=== PATIENT | female | born 1980 ===

== ENCOUNTER 2016-08-20 22:33 | Emergency (ER) | payer MEDICAID ==
[2016-08-20] MEDS ORDERED: Sodium Chloride 0.9% 1,000 ML IV ONE (23:50)
--- NOTE | 2016-08-20 23:51 | C.PDOC ---
History Of Present Illness Patient presents after drinking 4 shots of joel after not eating all day as per sister. Patient's sister states her son last night and has been drinking because she is depressed. Patient has not verbalized any physical complaints at this time. Time Seen by Provider: 08/20/16 23:50 Chief Complaint (Nursing): Substance Abuse History Per: Patient History/Exam Limitations: no limitations Onset/Duration Of Symptoms: Hrs Current Symptoms Are (Timing): Still Present Suicide/Self Injury Attempted (Context): None Modifying Factor(s): Alcohol Severity: None Pain Scale Rating Of: 0 Associated Symptoms: Depression. denies: Suicidal Thoughts, Suicidal Plan Involuntary Hold By: None Recent travel outside of the [place]: No Past Medical History Reviewed: Historical Data, Nursing Documentation, Vital Signs Vital Signs: Last Vital Signs Temp 98.7 F 08/20/16 22:41 Pulse 95 H 08/20/16 22:41 Resp 18 08/20/16 22:41 BP 136/77 08/20/16 22:41 Pulse Ox 97 08/21/16 01:26 - Medical History PMH: No Chronic Diseases Surgical History: No Surg Hx Family History: States: No Known Family Hx - Social History Hx Alcohol Use: Yes (A few times per week (as per triage)) Hx Substance Use: No - Immunization History Hx Tetanus Toxoid Vaccination: No Hx Influenza Vaccination: No Hx Pneumococcal Vaccination: No Review Of Systems Constitutional: Negative for: Fever, Chills Gastrointestinal: Negative for: Nausea, Vomiting, Diarrhea Psych: Positive for: Depression Physical Exam - Physical Exam Appears: Non-toxic, Other (ETOH on breath) Skin: Warm, Dry Oral Mucosa: Moist Cardiovascular: Rhythm Regular, No Murmur Respiratory: No Rales, No Rhonchi, No Wheezing Gastrointestinal/Abdominal: Soft, No Tenderness ED Course And Treatment - Laboratory Results Result Diagrams: 08/21/16 00:27 08/21/16 00:27 O2 Sat by Pulse Oximetry: 97 (Room air) Pulse Ox Interpretation: Normal Progress Note: Blood work and urinalysis ordered. IV fluids administered. pt was cleared for discharge by dr ford Disposition Counseled Patient/Family Regarding: Studies Performed, Diagnosis, Need For Followup - Disposition Disposition: HOME/ ROUTINE Disposition Time: 23:50 Condition: FAIR Instructions: Grief and Loss (ED) Print Language: BRAZILIAN - Clinical Impression Clinical Impression: Bereavement, uncomplicated - Scribe Statement The provider has reviewed the documentation as recorded by the Scribe Wu Vanessa All medical record entries made by the Scribe were at my direction and personally dictated by me. I have reviewed the chart and agree that the record accurately reflects my personal performance of the history, physical exam, medical decision making, and the department course for this patient. I have also personally directed, reviewed, and agree with the discharge instructions and disposition.
[2016-08-21] MEDS ORDERED: Sodium Chloride 0.9% 1,000 ML ONE (00:02)
[2016-08-21 00:37] LABS: BASO # 0.1 K/uL (0.0-0.2); BASO % 0.6 % (0.0-2.0); EOS % 0.2 % (0.0-4.0); LYMPH # 2.1 K/uL (1.0-4.3); LYMPH % 18.2 % (20.0-40.0); MEAN CELL VOLUME 72.9 fL (81.0-99.0); MEAN CORPUSCULAR HEMOGLOBIN 22.4 pg (27.0-31.0); MEAN CORPUSCULAR HGB CONC 30.7 g/dL (33.0-37.0); MEAN PLATELET VOLUME 7.4 fL (7.2-11.7); MONO # 0.9 K/uL (0.0-0.8); MONO % 7.8 % (0.0-10.0); RED CELL DISTRIBUTION WIDTH 17.4 % (11.5-14.5); WHITE BLOOD COUNT 11.7 K/uL (4.8-10.8)
[2016-08-21 00:47] LABS: CHLORIDE 100 mmol/L (98-107); POTASSIUM 3.9 mmol/L (3.6-5.2); SODIUM 137 mmol/L (132-148)
[2016-08-21 00:49] LABS: AST/SGOT 30 U/L (14-36); BILIRUBIN,TOTAL 0.4 mg/dL (0.2-1.3); CARBON DIOXIDE 21 mmol/L (22-30); GFR AFRICAN-AMERICAN > 60
[2016-08-21 00:50] LABS: ALB/GLOB RATIO 0.9 (1.0-2.1); ALKALINE PHOSPHATASE 88 U/L (38-126); ALT/SGPT 44 U/L (9-52); BLOOD UREA NITROGEN 10 mg/dL (7-17); CALCIUM 8.4 mg/dl (8.6-10.4); GLUCOSE,RANDOM 113 mg/dL (65-105); TOTAL PROTEIN 8.1 g/dL (6.3-8.3)
[2016-08-21 00:51] LABS: ALCOHOL SERUM 155 mg/dl (0-10)
[2016-08-21 01:31] LABS: RBC URINE 9 /hpf (0-3); URINE BACTERIA RARE (<OCC); URINE BILIRUBIN NEGATIVE (NEGATIVE); URINE BLOOD 3+ (NEGATIVE); URINE COLOR Yellow (YELLOW); URINE GLUCOSE (UA) NORMAL (Normal); URINE KETONE TRACE mg/dL (NEGATIVE); URINE LEUKOCYTE ESTERASE NEG Leu/uL (Negative); URINE PROTEIN NEGATIVE (NEGATIVE); URINE UROBILINOGEN NORMAL mg/dL (0.2-1.0); WBC URINE 1 /hpf (0-5)
[2016-08-21 02:57] VITALS: BP 122/70; PULSE 89; RESP 20; TEMP 97.2; O2SAT 98
== END 2016-08-21 02:58 | disposition home or self-care (01) ==
LOC: C.ER 22:33
DX: Z63.4 Disappearance and death of family member (principal)
CPT/HCPCS: 80053; 80320; 80324; 80329; 80345; 80346; 80349; 80353; 80358; 80361; 81001; 83992; 84703; 85025; 96360; 99285; J7040

== ENCOUNTER 2018-04-01 19:58 | Emergency (ER) | payer MEDICAID ==
[2018-04-01 20:19] VITALS: RESP 20; O2SAT 100
[2018-04-01] MEDS ORDERED: Sodium Chloride 0.9% 1,000 ML IV ONE (20:29)
[2018-04-01] MEDS ORDERED: Sodium Chloride 0.9% 1,000 ML ONE (20:45)
[2018-04-01 20:48] LABS: BASO # 0.1 K/uL (0.0-0.2); EOS # 0.1 K/uL (0.0-0.7); HEMOGLOBIN 8.2 g/dL (11.0-16.0); MEAN CELL VOLUME 64.9 fL (81.0-99.0); WHITE BLOOD COUNT 9.9 K/uL (4.8-10.8)
[2018-04-01 20:55] LABS: URINE BACTERIA FEW (<OCC); URINE BILIRUBIN NEGATIVE (NEGATIVE); URINE BLOOD 3+ (NEGATIVE); URINE CLARITY Hazy (Clear); URINE COLOR Amber (YELLOW); URINE GLUCOSE (UA) NORMAL (Normal); URINE LEUKOCYTE ESTERASE 2+ Leu/uL (Negative); URINE PROTEIN 2+ mg/dL (NEGATIVE)
[2018-04-01 20:56] LABS: BASO % 1.3 % (0.0-2.0); EOS % 0.9 % (0.0-4.0); LYMPH # 2.8 K/uL (1.0-4.3); LYMPH % 28.5 % (20.0-40.0); MEAN CORPUSCULAR HEMOGLOBIN 19.3 pg (27.0-31.0); MEAN CORPUSCULAR HGB CONC 29.8 g/dL (33.0-37.0); MEAN PLATELET VOLUME 7.1 fL (7.2-11.7); MONO # 0.8 K/uL (0.0-0.8); MONO % 8.3 % (0.0-10.0); NRBC % 0.1 % (0.0-2.0); RBC 4.24 Mil/uL (3.80-5.20); RED CELL DISTRIBUTION WIDTH 18.1 % (11.5-14.5)
[2018-04-01 21:00] LABS: ALB/GLOB RATIO 0.9 (1.0-2.1); ALBUMIN 3.6 g/dL (3.5-5.0); ALT/SGPT 21 U/L (9-52); AST/SGOT 15 U/L (14-36); BLOOD UREA NITROGEN 11 mg/dL (7-17); CALCIUM 7.8 mg/dl (8.6-10.4); GFR NON-AFRICAN AMERICAN > 60; LIPASE 37 U/L (23-300)
--- NOTE | 2018-04-01 21:11 | C.PDOC ---
History Of Present Illness Patient is a 38 year old female who presents to the ED c/o waxing and waning diffuse abdominal pain for the past 2 weeks. Patient notes associated constipation and has not taken any medications for her symptoms. She denies any nausea, vomiting, diarrhea, urinary symptoms, vaginal bleeding, or vaginal discharge. Time Seen by Provider: 04/01/18 20:22 Chief Complaint (Nursing): Abdominal Pain History Per: Patient History/Exam Limitations: no limitations Onset/Duration Of Symptoms: Other (2 weeks ) Current Symptoms Are (Timing): Still Present Location Of Pain/Discomfort: Diffuse Quality Of Discomfort: "Pain" Associated Symptoms: Constipation. denies: Nausea, Vomiting, Diarrhea, Urinary Symptoms Additional History Per: Patient Abnormal Vaginal Bleeding: No Past Medical History Reviewed: Historical Data, Nursing Documentation, Vital Signs Vital Signs: Last Vital Signs Temp 99 F 04/01/18 20:15 Pulse 103 H 04/01/18 20:15 Resp 20 04/01/18 20:15 BP 106/68 04/01/18 20:15 Pulse Ox 100 04/01/18 20:15 - Medical History PMH: No Chronic Diseases Denies: Diabetes, Hepatitis, HIV, HTN, Seizures, Sexually Transmitted Disease Surgical History: No Surg Hx Family History: States: Unknown Family Hx - Social History Hx Tobacco Use: No Hx Alcohol Use: Yes (A few times per week (as per triage)) Hx Substance Use: No - Immunization History Hx Tetanus Toxoid Vaccination: No Hx Influenza Vaccination: No Hx Pneumococcal Vaccination: No Review Of Systems Except As Marked, All Systems Reviewed And Found Negative. Gastrointestinal: Positive for: Abdominal Pain, Constipation Physical Exam - Physical Exam Appears: Non-toxic, No Acute Distress Skin: Normal Color, Warm, Dry Head: Atraumatic, Normacephalic Eye(s): bilateral: Normal Inspection, PERRL, EOMI Nose: Normal Oral Mucosa: Moist Chest: Symmetrical Cardiovascular: Rhythm Regular, No Murmur Respiratory: Normal Breath Sounds, No Rales, No Rhonchi, No Wheezing Gastrointestinal/Abdominal: Tenderness (diffuse ), No Guarding, No Rebound Extremity: Normal ROM Neurological/Psych: Oriented x3, Normal Speech ED Course And Treatment - Laboratory Results Result Diagrams: 04/01/18 20:44 04/01/18 20:44 Lab Results: Total Bilirubin 0.2 mg/dL (0.2-1.3) 04/01/18 20:44 AST 15 U/L (14-36) 04/01/18 20:44 ALT 21 U/L (9-52) 04/01/18 20:44 Alkaline Phosphatase 91 U/L (38-126) 04/01/18 20:44 Total Protein 7.4 g/dL (6.3-8.3) 04/01/18 20:44 Albumin 3.6 g/dL (3.5-5.0) 04/01/18 20:44 Globulin 3.8 gm/dL (2.2-3.9) 04/01/18 20:44 Albumin/Globulin Ratio 0.9 (1.0-2.1) L 04/01/18 20:44 Lipase 37 U/L (23-300) 04/01/18 20:44 Urine Color Radha (YELLOW) 04/01/18 20:44 Urine Clarity Hazy (Clear) 04/01/18 20:44 Urine pH 6.0 (5.0-8.0) 04/01/18 20:44 Ur Specific [place] 1.020 (1.003-1.030) 04/01/18 20:44 Urine Protein 2+ mg/dL (NEGATIVE) H 04/01/18 20:44 Urine Glucose (UA) Normal mg/dL (Normal) 04/01/18 20:44 Urine Ketones Negative mg/dL (NEGATIVE) 04/01/18 20:44 Urine Blood 3+ (NEGATIVE) H 04/01/18 20:44 Urine Nitrate Negative (NEGATIVE) 04/01/18 20:44 Urine Bilirubin Negative (NEGATIVE) 04/01/18 20:44 Urine Urobilinogen 4.0 mg/dL (0.2-1.0) H 04/01/18 20:44 Ur Leukocyte Esterase 2+ Pb/uL (Negative) H 04/01/18 20:44 Urine WBC (Auto) 47 /hpf (0-5) H 04/01/18 20:44 Urine RBC (Auto) 4119 /hpf (0-3) H 04/01/18 20:44 Urine Bacteria Few (<OCC) H 04/01/18 20:44 O2 Sat by Pulse Oximetry: 100 (on RA) Pulse Ox Interpretation: Normal - CT Scan/US CAT A/P Other Rad Studies (CT/US): Read By Radiologist, Radiology Report Reviewed CT/US Interpretation: EXAM: CT Abdomen and Pelvis with IV contrast. CLINICAL HISTORY: Sima umbilical pain. TECHNIQUE: Axial computed tomography images of the abdomen and pelvis with intravenous contrast. CONTRAST: With intravenous contrast. COMPARISON: None provided. FINDINGS: LUNG BASES: The lung bases appear clear. No pleural effusions are seen. LIVER: Unremarkable. GALLBLADDER AND BILE DUCTS: The gallbladder appears within normal limits. No radioopaque gallstones are seen. No biliary ductal dilatation is evident. PANCREAS: Unremarkable. SPLEEN: Unremarkable. ADRENAL GLANDS: Unremarkable. KIDNEYS, URETERS, AND BLADDER: The kidneys appear within normal limits. There is no hydronephrosis or hydroureter. No urinary calculi are seen. The urinary bladder is compressed by the enlarged uterus; but otherwise appears normal in size and configuration. STOMACH AND BOWEL: Unremarkable appearance of the stomach and bowel. No evidence of bowel obstruction. No evidence suggesting enteritis or c olitis. APPENDIX: No evidence of acute appendicitis on CT examination. PERITONEUM: No free fluid. No free air. A small umbilical hernia is present which contains fat. LYMPH NODES: No lymphadenopathy is evident. REPRODUCTIVE: The uterus is markedly enlarged, heterogeneous and demonstrates lobulated contours. The uterus measures approximately 14.5 x 12.1 x 12.6 cm in longitudinal, cranial caudal and transverse dimensions respectively. This may be subsequent to a large uterine leiomyomata (fibroids). Uterine neoplasia would be an additional consideration. Gynecologic surgical evaluation could be considered. Both ovaries appeared normal in size and position. VASCULATURE: No evidence of abdominal aortic aneurysm. BONES: No aggressive appearing osseous lesion. No acute osseous pathology evident. IMPRESSION: 1. Markedly enlarged heterogeneous and lobulated uterus suggestive of leiomyomata. Uterine neoplasia would be a secondary consideration. Gynecologic surgical consultation could be considered. 2. A small umbilical hernia is present which contains fat. Medical Decision Making Medical Decision Making: Plan: CAT Abdomen/Pelvis Labs Urinalysis Pepcid 20mg IVP Toradol 30mg IVP Zofran 4mg IVP IV Fluids Assessment: abdominal pain 0001 - patient resting comfortably, speaking on phone, no pain. ct scan report discussed with patient. Discharged home to follow up with gynecology within 2 days. Information provided. Disposition Counseled Patient/Family Regarding: Studies Performed, Diagnosis, Need For Followup, Rx Given - Disposition Referrals: Judy Caal DO [Staff Provider] - [facility] [[facility]] [facility] [Outside] Disposition: HOME/ ROUTINE Disposition Time: 00:02 Condition: STABLE Additional Instructions: follow up with gynecology within 2 days call to make an appointment take medication as prescribed for pain bring cat scan report with you to appointment return to ER if symptoms worsens or progress Prescriptions: Naproxen [Naprosyn] 500 mg PO BID PRN #16 tab PRN Reason: Pain, Moderate (4-7) Instructions: Uterine Fibroids (DC) Forms: Gen Discharge Inst Indonesian, [facility] (Indonesian) Print Language: OCCITAN - Clinical Impression Clinical Impression: Abdominal pain, Fibroid - Scribe Statement The provider has reviewed the documentation as recorded by the Maryibkavon Diggs All medical record entries made by the Maryibkavon were at my direction and personally dictated by me. I have reviewed the chart and agree that the record accurately reflects my personal performance of the history, physical exam, medical decision making, and the department course for this patient. I have also personally directed, reviewed, and agree with the discharge instructions and disposition.
[2018-04-02 00:18] VITALS: BP 112/73; PULSE 77; TEMP 98.5
--- NOTE | 2018-04-02 10:04 | CT ---
CT abdomen and pelvis HISTORY: Abdominal pain. COMPARISON: None available. TECHNIQUE: Multiple contiguous axial images were performed through the abdomen and pelvis with the use of intravenous contrast. Subsequently, sagittal and coronal reformatted images were obtained. This CT exam was performed using one or more of the following dose reduction techniques: Automated exposure control, adjustment of the mA and/or kV according to patient size, and/or use of iterative reconstruction technique. Findings: Mild scattered atelectasis at the lung bases. No pleural or pericardial effusion. Prominent liver with mild fatty infiltration. Gallbladder is preserved. Spleen is preserved. Adrenal glands are preserved. Pancreas is preserved. Upper abdominal bowel is preserved. Right kidney: No calculi or hydronephrosis. Left Kidney: No calculi or hydronephrosis. Urinary bladder is preserved. Markedly enlarged and heterogeneous uterus. Within the uterus, there are prominent lesions including a 8.9 x 8.5 x 8.3 centimeter lesion demonstrating a Hounsfield unit attenuation of 22. An adjacent prominent lesion measures 4.9 x 4.6 x 4.9 centimeters demonstrating a Hounsfield unit attenuation of 58. These may represent prominent fibroid lesions. Additional etiologies not excluded. Correlation with pelvic MRI and/or ultrasound may be helpful for further evaluation if clinically indicated. Heterogeneity of the bilateral adnexa. Right adnexal calcification measuring up to 4 millimeters on series 3, image 140. Clinical correlation. Fluid-filled right hemicolon which may represent some diarrheal illness. Appendix is within normal limits. Few shotty para-aortic and inguinal lymph nodes. Few shotty mesenteric lymph nodes. Small fat containing umbilical hernia noted. Degenerative changes in the spine. Impression: 1. Markedly enlarged and heterogeneous uterus. Within the uterus, there are prominent lesions including a 8.9 x 8.5 x 8.3 centimeter lesion demonstrating a Hounsfield unit attenuation of 22. An adjacent prominent lesion measures 4.9 x 4.6 x 4.9 centimeters demonstrating a Hounsfield unit attenuation of 58. These may represent prominent fibroid lesions. Additional etiologies not excluded. Correlation with pelvic MRI and/or ultrasound may be helpful for further evaluation if clinically indicated. 2. Heterogeneity of the bilateral adnexa. Right adnexal calcification measuring up to 4 millimeters on series 3, image 140. Clinical correlation. 3. Prominent liver with mild fatty infiltration. Additional findings as above. A preliminary report was generated at 11:57 p.m. on 04/01/[address] Agustin Mcfarland from [facility] rad.
== END 2018-04-02 00:18 | disposition home or self-care (01) ==
LOC: C.ER 19:58
DX: R10.84 Generalized abdominal pain (principal); D25.9 Leiomyoma of uterus, unspecified
CPT/HCPCS: 74177; 80053; 81001; 81025; 83690; 85025; 96361; 96374; 96375; 99284; J1885; J2405; J7030